=== PATIENT | female | born 1970 | race Caucasian/White ===

== ENCOUNTER 2019-10-04 08:40 | Emergency (ER) | payer OTHER ==
[~2019-10-04] VITALS: Ht 160 cm; Wt 96.3 kg
[2019-10-04 08:48] VITALS: Ht 160 cm; Wt 96.3 kg
[2019-10-04 09:26] LABS: CALCIUM 8.6 mg/dL (8.5-10.1); CHLORIDE SERUM 104 mmol/L (98-107); CREATININE SERUM 0.8 mg/dL (0.6-1.0); GFR1 > 60 mL/min; GLUCOSE SERUM 94 mg/dL (74-106); POTASSIUM SERUM 4.1 mmol/L (3.5-5.1); SODIUM SERUM 137 mmol/L (136-145)
[2019-10-04 09:30] LABS: ALBUMIN 3.7 g/dL (3.4-5.0); ALKALINE PHOSPHATASE 65 U/L (46-116); ALT/SGPT 40 U/L (14-59); AST/SGOT 16 U/L (15-37); BILIRUBIN TOTAL 0.6 mg/dL (0.20-1.00); LIPASE 103 IU/L (73-393)
[2019-10-04 09:55] LABS: BASOPHIL % 1.2 % (0-2); PLATELET COUNT 297 x10^3mcL (130-400); RED CELL DISTRIBUTION WIDTH 13.1 % (11.5-14.5)
[2019-10-04 12:52] VITALS: BP 123/80
== END 2019-10-04 14:44 | disposition home or self-care (01) ==
LOC: ED 08:40
PROVIDERS: Specialist
DX: R10.13 Epigastric pain (principal); R11.0 Nausea
CPT/HCPCS: 82962; J1885; J2405; J3010; J3490; J7030; Q0162